=== PATIENT | female | born 1995 | race Two or more races ===

== ENCOUNTER 2020-12-09 17:31 | Emergency (ER) | payer OTHER ==
[~2020-12-09] VITALS: Ht 160 cm; Wt 70.0 kg
[2020-12-09 17:38] VITALS: BP 114/71
[2020-12-09 18:23] LABS: APPEARANCE,URINE CLOUDY (CLEAR); BILIRUBIN,URINE NEGATIVE (NEGATIVE); GLUCOSE, URINE (UA) NEGATIVE (NEGATIVE); KETONES,URINE NEGATIVE (NEGATIVE); LEUKOCYTE ESTERASE ,URINE TRACE (NEGATIVE); NITRATE,URINE NEGATIVE (NEGATIVE); OCCULT BLOOD,URINE NEGATIVE (NEGATIVE); PROTEIN,URINE NEGATIVE (NEGATIVE)
[2020-12-09 18:29] LABS: BACTERIA,URINE Rare /HPF (None Seen); RBC,URINE 0-2 /HPF (0-2); SQUAMOUS EPITHELIAL CELL,UR Few /LPF (None Seen); WBC,URINE 0-2 /HPF (0-5)
== END 2020-12-09 19:14 | disposition home or self-care (01) ==
LOC: EMS 17:35
DX: B00.9 Herpesviral infection, unspecified (principal); R30.0 Dysuria
CPT/HCPCS: 81001; 84703; 87491; 87591; 99283